=== PATIENT | female | born 1985 | race Caucasian/White ===

== ENCOUNTER 2017-02-23 02:42 | Emergency (ER) | payer OTHER ==
[~2017-02-23] VITALS: Ht 175.2 cm; Wt 81.6 kg
[~2017-02-23 02:42] MED LIST: MOTRIN800 MG PO; ZYRTEC10 MG PO
== END 2017-02-23 05:00 | disposition home or self-care (01) ==
LOC: ED 02:42
DX: S02.2XXB Fracture of nasal bones, initial encounter for open fracture (principal); Z88.0 Allergy status to penicillin; Z91.040 Latex allergy status; Y04.0XXA Assault by unarmed brawl or fight, initial encounter; Y93.89 Activity, other specified; Y92.89 Other specified places as the place of occurrence of the external cause; Y99.8 Other external cause status

== ENCOUNTER 2017-03-03 20:50 | Emergency (ER) | payer OTHER ==
[~2017-03-03] VITALS: Ht 177.8 cm; Wt 77.1 kg
== END 2017-03-03 22:08 | disposition home or self-care (01) ==
LOC: ED 20:50
DX: S01.21XD Laceration without foreign body of nose, subsequent encounter (principal); F17.200 Nicotine dependence, unspecified, uncomplicated; Z88.0 Allergy status to penicillin; Z48.02 Encounter for removal of sutures; X58.XXXD Exposure to other specified factors, subsequent encounter; Y92.9 Unspecified place or not applicable; Y99.9 Unspecified external cause status

== ENCOUNTER 2017-03-25 16:12 | Emergency (ER) | payer OTHER ==
[~2017-03-25] VITALS: Wt 84.8 kg
[2017-03-25] MEDS ORDERED: MEDROL DOSEPAK4 MG PO (18:57)
[2017-03-25] MEDS ORDERED: ZITHROMAX250 MG PO (18:57)
== END 2017-03-25 19:04 | disposition home or self-care (01) ==
LOC: ED 16:12
DX: J40 Bronchitis, not specified as acute or chronic (principal); F17.200 Nicotine dependence, unspecified, uncomplicated; Z79.899 Other long term (current) drug therapy; Z88.0 Allergy status to penicillin

== ENCOUNTER 2017-10-13 23:26 | Emergency (ER) | payer SELFPAY ==
[~2017-10-13] VITALS: Ht 180.3 cm; Wt 81.6 kg
[~2017-10-13 23:26] MED LIST changes: +MEDROL DOSEPAK4 MG PO; +ZITHROMAX250 MG PO
== END 2017-10-14 00:57 | disposition home or self-care (01) ==
LOC: ED 23:26
DX: S62.642A Nondisplaced fracture of proximal phalanx of right middle finger, initial encounter for closed fracture (principal); S62.664A Nondisplaced fracture of distal phalanx of right ring finger, initial encounter for closed fracture; Z79.899 Other long term (current) drug therapy; Z88.0 Allergy status to penicillin; W22.8XXA Striking against or struck by other objects, initial encounter; Y93.89 Activity, other specified; Y92.89 Other specified places as the place of occurrence of the external cause; Y99.9 Unspecified external cause status